=== PATIENT | female | born 1965 | race Hispanic/Latino ===

== ENCOUNTER 2022-09-24 15:06 | Outpatient (CLI) | payer OTHER | END 2022-09-24 15:07 | disposition home or self-care (01) | LOC: CSHCP 15:06 | PROVIDERS: ATTEND Internal Medicine Pulmonary Disease | DX: M34.9 Systemic sclerosis, unspecified (principal); J98.4 Other disorders of lung | CPT/HCPCS: 94010; 94726; 94729; 94760 ==